=== PATIENT | male | born 1955 | race Caucasian/White ===

== ENCOUNTER 2019-11-29 00:30 | Day surgery (SDC) | payer SELFPAY ==
[~2019-11-29 00:30] MED LIST: ALBU90OI61 INH; FLUSAL5005 INH; TIOT18 INH
[2019-11-29] MEDS ORDERED: PROAIR DIGIHAL90 MCG INH (17:12)
[2019-11-29] MEDS ORDERED: MONT10T PO (17:13)
[2019-11-29] MEDS ORDERED: XOLAIR150 MG/1 M SC (17:14)
[2019-11-29] MEDS ORDERED: PRED20 PO (17:17)
[2019-11-29] MEDS ORDERED: ADVAIR HFA 230-28 GM INH (17:17)
[2019-11-29] MEDS ORDERED: SPIRIVA RESPIMAT4 G3 INH (17:19)
[2019-11-29] MEDS ORDERED: COMBIVENT RESPIM4 G1 INH (17:20)
== END 2019-11-29 15:38 | disposition home or self-care (01) ==
LOC: ATC 00:30
DX: J45.901 Unspecified asthma with (acute) exacerbation (principal); J30.9 Allergic rhinitis, unspecified
CPT/HCPCS: 96372; J2357

== ENCOUNTER 2020-02-19 00:10 | Day surgery (SDC) | payer MEDICARE ==
[~2020-02-19 00:10] MED LIST changes: +ADVAIR HFA 230-28 GM INH; +COMBIVENT RESPIM4 G1 INH; +MONT10T PO; +PRED20 PO; +PROAIR DIGIHAL90 MCG INH; +SPIRIVA RESPIMAT4 G3 INH; +XOLAIR150 MG/1 M SC
== END 2020-02-19 08:26 | disposition home or self-care (01) ==
LOC: ATC 00:10
DX: J45.50 Severe persistent asthma, uncomplicated (principal); Z79.51 Long term (current) use of inhaled steroids; Z79.52 Long term (current) use of systemic steroids
CPT/HCPCS: J2357

== ENCOUNTER 2020-03-18 00:08 | Day surgery (SDC) | payer MEDICARE, OTHER | END 2020-03-18 08:33 | disposition home or self-care (01) | LOC: ATC 00:08 | DX: J45.51 Severe persistent asthma with (acute) exacerbation (principal) | CPT/HCPCS: J2357 ==

== ENCOUNTER 2020-04-01 00:02 | Day surgery (SDC) | payer MEDICARE, OTHER | END 2020-04-01 08:42 | disposition home or self-care (01) | LOC: ATC 00:02 | DX: J45.51 Severe persistent asthma with (acute) exacerbation (principal) | CPT/HCPCS: 96372; J2357 ==

== ENCOUNTER 2020-04-15 00:07 | Day surgery (SDC) | payer MEDICARE, OTHER | END 2020-04-15 08:45 | disposition home or self-care (01) | LOC: ATC 00:07 | DX: J45.50 Severe persistent asthma, uncomplicated (principal); J30.9 Allergic rhinitis, unspecified; Z79.51 Long term (current) use of inhaled steroids; Z79.52 Long term (current) use of systemic steroids; Z79.899 Other long term (current) drug therapy | CPT/HCPCS: 96372; J2357 ==

== ENCOUNTER 2020-04-30 00:36 | Day surgery (SDC) | payer MEDICARE, OTHER | END 2020-04-30 16:01 | disposition home or self-care (01) | LOC: ATC 00:36 | DX: J45.51 Severe persistent asthma with (acute) exacerbation (principal) | CPT/HCPCS: 96372; J2357 ==

== ENCOUNTER 2020-05-31 10:40 | Day surgery (SDC) | payer MEDICARE, OTHER | END 2020-05-31 11:50 | disposition home or self-care (01) | LOC: ATC 10:40 | DX: J45.50 Severe persistent asthma, uncomplicated (principal); J30.9 Allergic rhinitis, unspecified; Z79.51 Long term (current) use of inhaled steroids; Z79.52 Long term (current) use of systemic steroids; Z79.899 Other long term (current) drug therapy | CPT/HCPCS: 96372; J2357 ==

== ENCOUNTER 2020-06-17 00:12 | Day surgery (SDC) | payer MEDICARE, OTHER | END 2020-06-17 08:32 | disposition home or self-care (01) | LOC: ATC 00:12 | DX: J45.50 Severe persistent asthma, uncomplicated (principal); J30.9 Allergic rhinitis, unspecified; Z79.51 Long term (current) use of inhaled steroids; Z79.52 Long term (current) use of systemic steroids; Z79.899 Other long term (current) drug therapy | CPT/HCPCS: J2357 ==

== ENCOUNTER 2020-07-01 00:18 | Day surgery (SDC) | payer MEDICARE, OTHER | END 2020-07-01 09:04 | disposition home or self-care (01) | LOC: ATC 00:18 | DX: J45.50 Severe persistent asthma, uncomplicated (principal); J30.9 Allergic rhinitis, unspecified; Z79.51 Long term (current) use of inhaled steroids; Z79.899 Other long term (current) drug therapy | CPT/HCPCS: 96372; J2357 ==

== ENCOUNTER 2020-07-23 00:04 | Day surgery (SDC) | payer MEDICARE, OTHER ==
--- NOTE | 2020-07-18 16:33 | NUR ---
PT DID NOT SHOW FOR HIS APPOINTMENT IN THE [facility] TODAY.
== END 2020-07-23 09:21 | disposition home or self-care (01) ==
LOC: ATC 00:04
DX: J45.50 Severe persistent asthma, uncomplicated (principal); J30.9 Allergic rhinitis, unspecified; Z79.51 Long term (current) use of inhaled steroids
CPT/HCPCS: 96372; J2357

== ENCOUNTER 2020-08-06 01:00 | Day surgery (SDC) | payer MEDICARE, OTHER | END 2020-08-06 15:23 | disposition home or self-care (01) | LOC: ATC 01:00 | DX: J45.50 Severe persistent asthma, uncomplicated (principal); Z79.51 Long term (current) use of inhaled steroids | CPT/HCPCS: 96372; J2357 ==

== ENCOUNTER 2020-08-20 00:43 | Day surgery (SDC) | payer MEDICARE, OTHER | END 2020-08-20 15:30 | disposition home or self-care (01) | LOC: ATC 00:43 | DX: J45.51 Severe persistent asthma with (acute) exacerbation (principal); J30.9 Allergic rhinitis, unspecified | CPT/HCPCS: 96372; J2357 ==

== ENCOUNTER 2020-09-03 00:26 | Day surgery (SDC) | payer MEDICARE, OTHER | END 2020-09-03 15:18 | disposition home or self-care (01) | LOC: ATC 00:26 | DX: J45.901 Unspecified asthma with (acute) exacerbation (principal); J30.9 Allergic rhinitis, unspecified; Z79.899 Other long term (current) drug therapy | CPT/HCPCS: 96372; J2357 ==

== ENCOUNTER 2020-09-17 00:16 | Day surgery (SDC) | payer MEDICARE, OTHER | END 2020-09-17 15:30 | disposition home or self-care (01) | LOC: ATC 00:16 | DX: J30.9 Allergic rhinitis, unspecified (principal); J45.901 Unspecified asthma with (acute) exacerbation | CPT/HCPCS: 96372; J2357 ==

== ENCOUNTER 2020-10-01 00:17 | Day surgery (SDC) | payer MEDICARE, OTHER | END 2020-10-01 15:25 | disposition home or self-care (01) | LOC: ATC 00:17 | DX: J45.51 Severe persistent asthma with (acute) exacerbation (principal) | CPT/HCPCS: J2357 ==

== ENCOUNTER 2020-10-15 00:08 | Day surgery (SDC) | payer MEDICARE, OTHER | END 2020-10-15 08:34 | disposition home or self-care (01) | LOC: ATC 00:08 | DX: J45.51 Severe persistent asthma with (acute) exacerbation (principal); Z79.899 Other long term (current) drug therapy | CPT/HCPCS: J2357 ==

== ENCOUNTER 2020-10-29 00:45 | Day surgery (SDC) | payer MEDICARE, OTHER | END 2020-10-29 15:50 | disposition home or self-care (01) | LOC: ATC 00:45 | DX: J45.901 Unspecified asthma with (acute) exacerbation (principal) | CPT/HCPCS: 96372; J2357 ==

== ENCOUNTER 2020-11-12 03:14 | Day surgery (SDC) | payer MEDICARE, OTHER | END 2020-11-12 17:05 | disposition home or self-care (01) | LOC: ATC 03:14 | DX: J30.9 Allergic rhinitis, unspecified (principal); J45.901 Unspecified asthma with (acute) exacerbation | CPT/HCPCS: 96372; J2357 ==

== ENCOUNTER 2020-11-26 02:27 | Day surgery (SDC) | payer MEDICARE, OTHER | END 2020-11-26 16:16 | disposition home or self-care (01) | LOC: ATC 02:27 | DX: J30.9 Allergic rhinitis, unspecified (principal); J45.51 Severe persistent asthma with (acute) exacerbation | CPT/HCPCS: 96372; J2357 ==

== ENCOUNTER 2020-12-10 05:06 | Day surgery (SDC) | payer MEDICARE, OTHER | END 2020-12-10 15:43 | disposition home or self-care (01) | LOC: ATC 05:06 | DX: J45.51 Severe persistent asthma with (acute) exacerbation (principal); J30.9 Allergic rhinitis, unspecified | CPT/HCPCS: 96372; J2357 ==

== ENCOUNTER 2020-12-24 04:30 | Day surgery (SDC) | payer MEDICARE, OTHER | END 2020-12-24 16:08 | disposition home or self-care (01) | LOC: ATC 04:30 | DX: J45.901 Unspecified asthma with (acute) exacerbation (principal); J30.9 Allergic rhinitis, unspecified | CPT/HCPCS: 96372; J2357 ==

== ENCOUNTER 2021-01-07 04:19 | Day surgery (SDC) | payer MEDICARE, OTHER | END 2021-01-07 16:20 | disposition home or self-care (01) | LOC: ATC 04:19 | DX: J45.51 Severe persistent asthma with (acute) exacerbation (principal); J30.9 Allergic rhinitis, unspecified; Z79.899 Other long term (current) drug therapy; Z79.52 Long term (current) use of systemic steroids | CPT/HCPCS: J2357 ==

== ENCOUNTER 2021-01-21 03:53 | Day surgery (SDC) | payer MEDICARE, OTHER | END 2021-01-21 16:08 | disposition home or self-care (01) | LOC: ATC 03:53 | DX: J45.50 Severe persistent asthma, uncomplicated (principal); Z57.39 Occupational exposure to other air contaminants | CPT/HCPCS: 96372; J2357 ==

== ENCOUNTER 2021-02-04 02:21 | Day surgery (SDC) | payer MEDICARE, OTHER | END 2021-02-04 16:20 | disposition home or self-care (01) | LOC: ATC 02:21 | DX: J45.50 Severe persistent asthma, uncomplicated (principal); Z79.52 Long term (current) use of systemic steroids; Z79.899 Other long term (current) drug therapy | CPT/HCPCS: 96372; J2357 ==

== ENCOUNTER 2021-02-18 01:44 | Day surgery (SDC) | payer MEDICARE, OTHER | END 2021-02-18 16:16 | disposition home or self-care (01) | LOC: ATC 01:44 | DX: J45.50 Severe persistent asthma, uncomplicated (principal); Z79.52 Long term (current) use of systemic steroids | CPT/HCPCS: 96372; J2357 ==

== ENCOUNTER 2021-03-04 02:28 | Day surgery (SDC) | payer MEDICARE, OTHER | END 2021-03-04 15:56 | disposition home or self-care (01) | LOC: ATC 02:28 | DX: J45.50 Severe persistent asthma, uncomplicated (principal); Z79.52 Long term (current) use of systemic steroids | CPT/HCPCS: J2357 ==

== ENCOUNTER 2021-03-18 02:07 | Day surgery (SDC) | payer MEDICARE, OTHER | END 2021-03-18 22:41 | disposition home or self-care (01) | LOC: ATC 02:07 | DX: J45.909 Unspecified asthma, uncomplicated (principal); Z79.899 Other long term (current) drug therapy | CPT/HCPCS: 96372; J2357 ==

== ENCOUNTER 2021-04-01 01:22 | Day surgery (SDC) | payer MEDICARE, OTHER | END 2021-04-01 15:55 | disposition home or self-care (01) | LOC: ATC 01:22 | DX: J45.909 Unspecified asthma, uncomplicated (principal); Z79.899 Other long term (current) drug therapy | CPT/HCPCS: 96372; J2357 ==

== ENCOUNTER 2021-04-15 04:59 | Day surgery (SDC) | payer MEDICARE, OTHER | END 2021-04-15 16:48 | disposition home or self-care (01) | LOC: ATC 04:59 | DX: J45.50 Severe persistent asthma, uncomplicated (principal); Z79.899 Other long term (current) drug therapy | CPT/HCPCS: 96372; J2357 ==

== ENCOUNTER 2021-05-13 04:23 | Day surgery (SDC) | payer MEDICARE, OTHER | END 2021-05-13 14:58 | disposition home or self-care (01) | LOC: ATC 04:23 | DX: J45.50 Severe persistent asthma, uncomplicated (principal) | CPT/HCPCS: 96372; J2357 ==

== ENCOUNTER 2021-05-27 05:51 | Day surgery (SDC) | payer MEDICARE, OTHER | END 2021-05-27 15:13 | disposition home or self-care (01) | LOC: ATC 05:51 | DX: J45.50 Severe persistent asthma, uncomplicated (principal) | CPT/HCPCS: J2357 ==

== ENCOUNTER 2021-06-17 04:51 | Day surgery (SDC) | payer MEDICARE, OTHER | END 2021-06-17 14:20 | disposition home or self-care (01) | LOC: ATC 04:51 | DX: J45.50 Severe persistent asthma, uncomplicated (principal); Z79.899 Other long term (current) drug therapy | CPT/HCPCS: J2357 ==

== ENCOUNTER 2021-07-29 05:06 | Day surgery (SDC) | payer MEDICARE, OTHER | END 2021-07-29 13:20 | disposition home or self-care (01) | LOC: ATC 05:06 | DX: J45.50 Severe persistent asthma, uncomplicated (principal) | CPT/HCPCS: 96372; J2357 ==

== ENCOUNTER 2021-08-12 03:40 | Day surgery (SDC) | payer MEDICARE, OTHER | END 2021-08-12 15:00 | disposition home or self-care (01) | LOC: ATC 03:40 | DX: J45.50 Severe persistent asthma, uncomplicated (principal) | CPT/HCPCS: J2357 ==

== ENCOUNTER 2021-08-26 05:32 | Day surgery (SDC) | payer MEDICARE, OTHER | END 2021-08-26 14:37 | disposition home or self-care (01) | LOC: ATC 05:32 | DX: J45.50 Severe persistent asthma, uncomplicated (principal) | CPT/HCPCS: J2357 ==

== ENCOUNTER 2021-09-09 02:31 | Day surgery (SDC) | payer MEDICARE, OTHER | END 2021-09-09 14:25 | disposition home or self-care (01) | LOC: ATC 02:31 | DX: J45.909 Unspecified asthma, uncomplicated (principal) | CPT/HCPCS: J2357 ==

== ENCOUNTER 2021-10-07 01:49 | Day surgery (SDC) | payer MEDICARE, OTHER | END 2021-10-07 14:23 | disposition home or self-care (01) | LOC: ATC 01:49 | DX: J45.50 Severe persistent asthma, uncomplicated (principal) | CPT/HCPCS: J2357 ==

== ENCOUNTER 2021-10-21 01:17 | Day surgery (SDC) | payer MEDICARE, OTHER | END 2021-10-21 15:06 | disposition home or self-care (01) | LOC: ATC 01:17 | DX: J45.50 Severe persistent asthma, uncomplicated (principal) | CPT/HCPCS: J2357 ==

== ENCOUNTER 2021-11-05 08:35 | Day surgery (SDC) | payer MEDICARE, OTHER | END 2021-11-05 11:24 | disposition home or self-care (01) | LOC: ATC 08:35 | DX: J45.50 Severe persistent asthma, uncomplicated (principal); Z79.899 Other long term (current) drug therapy | CPT/HCPCS: 96372; J2357 ==

== ENCOUNTER 2021-11-18 04:32 | Day surgery (SDC) | payer MEDICARE, OTHER | END 2021-11-18 15:02 | disposition home or self-care (01) | LOC: ATC 04:32 | DX: J45.50 Severe persistent asthma, uncomplicated (principal) | CPT/HCPCS: 96372; J2357 ==

== ENCOUNTER → 2023-01-18 | Outpatient (CLI) | payer MEDICARE, OTHER ==
[2023-01-18 13:32] LABS: BASOPHILS ABSOLUTE AUTO 0.06 K/mm3 (0.00-0.23); BASOPHILS PERCENT AUTO 1 % (0-2); EOSINOPHILS ABSOLUTE AUTO 0.05 K/mm3 (0.00-0.68); EOSINOPHILS PERCENT AUTO 1 % (0-6); Hematocrit 45.3 % (37.0-53.0); Hemoglobin 15.3 g/dL (13.5-17.5); IMMATURE GRAN ABSOLUTE AUTO 0.02 K/mm3 (0.00-0.10); IMMATURE GRAN PERCENT AUTO 0 % (0-1); LYMPHOCYTES ABSOLUTE AUTO 1.69 K/mm3 (0.84-5.20); LYMPHOCYTES PERCENT AUTO 30 % (21-46); MONOCYTES ABSOLUTE AUTO 0.52 K/mm3 (0.16-1.47); MONOCYTES PERCENT AUTO 9 % (4-13); Mean Corpuscular HGB Conc 33.8 g/dL (31.5-36.5); Mean Corpuscular Volume 92 fL (80-100); Mean Platelet Volume 9.8 fL (9.1-12.4); NEUTROPHILS PERCENT AUTO 58 % (41-73); Platelet Count 289 K/mm3 (150-400); RDW Coefficient Variation 12.1 % (11.7-14.2); RDW Standard Deviation 41.1 fL (35.1-46.3); Red Blood Cell Count 4.93 M/mm3 (4.30-5.90); White Blood Cell Count 5.64 K/mm3 (4.00-11.30)
[2023-01-18 14:05] LABS: Albumin, Blood 3.8 g/dL (3.4-5.0); Albumin/Globulin Ratio 1.1 (0.8-1.8); Bilirubin, Total 0.5 mg/dL (0.1-1.0); Bun/Creatinine Ratio 27.3 (12.0-20.0); Creatinine, Blood 0.81 mg/dL (0.60-1.20); Globulin, Blood 3.4 g/dL (2.2-4.0); Potassium, Blood 4.4 mmol/L (3.5-5.5); Total Protein, Blood 7.2 g/dL (6.4-8.2)
== END | disposition home or self-care (01) ==
LOC: LAB SHORT 12:16 → LAB 12:16
PROVIDERS: Family Medicine
DX: E78.5 Hyperlipidemia, unspecified (principal); D72.819 Decreased white blood cell count, unspecified
CPT/HCPCS: 80053; 85025

== ENCOUNTER → 2023-01-19 | Outpatient (CLI) | payer MEDICARE, OTHER ==
[2023-01-19 17:23] LABS: Source, Urine Clean Catch
[2023-01-19 18:26] LABS: Osmolality, Urine 538 mos/kg (15-1400)
[2023-01-19 19:06] LABS: Bacteria Few /hpf; Mucus Light (0-Heavy); Red Blood Cells, Urine 0-2 /hpf (0-2); Squamous Epithelial Cells Rare /hpf (Few); White Blood Cells, Urine 0-2 /hpf (0-5)
[2023-01-19 19:42] LABS: Sodium, Urine, Random 29 mmol/L (20-110)
== END ==
LOC: LAB 17:20 → LAB SHORT 17:20
PROVIDERS: Family Medicine
DX: E87.1 Hypo-osmolality and hyponatremia (principal); R31.29 Other microscopic hematuria
CPT/HCPCS: 81015; 83935; 84300